=== PATIENT | male | born 1985 | race Caucasian/White ===

== ENCOUNTER 2025-04-28 15:48 | Outpatient (CLI) | payer OTHER, SELFPAY ==
--- NOTE | ~2025-04-28 | CT_ITS ---
EXAMINATION: CT sinus wo con DATE: 04/28/2025 15:59 INDICATION: Chronic sinusitis TECHNIQUE: Computed tomography (CT) of the paranasal sinuses was performed without intravenous contrast. The dose-length product was 405.45 mGy-cm. Automated exposure control and iterative reconstruction technique were employed. COMPARISON: None FINDINGS: There is mucosal thickening in the maxillary, ethmoid and frontal sinuses. No air-fluid levels. No mucoperiosteal reaction. Mild leftward nasal septal deviation. Ostiomeatal units are patent. Mastoids are pneumatized. IMPRESSION: 1. Moderate sinus disease. Reviewed, dictated and finalized at location O. IMPRESSION: 1. Moderate sinus disease.
== END 2025-04-28 15:49 | disposition home or self-care (01) ==
PROVIDERS: PCP Otolaryngology Otolaryngology/Facial Plastic Surgery; Visit Provider Otolaryngology Otolaryngology/Facial Plastic Surgery
DX: J32.9 Chronic sinusitis, unspecified (principal); J34.2 Deviated nasal septum; J34.3 Hypertrophy of nasal turbinates
CPT/HCPCS: 70486